=== PATIENT | female | born 1950 | race Hispanic/Latino ===

== ENCOUNTER → 2022-03-31 | Outpatient (CLI) | payer MEDICARE | END | disposition home or self-care (01) | LOC: RAH 12:16 | PROVIDERS: ATTEND Internal Medicine | DX: E04.1 Nontoxic single thyroid nodule (principal) | CPT/HCPCS: 76536 ==

== ENCOUNTER → 2023-09-17 | Outpatient (CLI) | payer MEDICARE | END | disposition home or self-care (01) | LOC: SHCH 14:38 | PROVIDERS: ATTEND Internal Medicine | DX: I70.203 Unspecified atherosclerosis of native arteries of extremities, bilateral legs (principal) | CPT/HCPCS: 93925 ==

== ENCOUNTER → 2023-10-31 | Outpatient (CLI) | payer MEDICARE | END | disposition home or self-care (01) | LOC: SHCH 12:31 | PROVIDERS: ATTEND Internal Medicine | DX: R94.31 Abnormal electrocardiogram [ECG] [EKG] (principal); R06.02 Shortness of breath; Z95.4 Presence of other heart-valve replacement | CPT/HCPCS: 93306 ==

== ENCOUNTER → 2023-12-04 | Outpatient (CLI) | payer MEDICARE | END | disposition home or self-care (01) | LOC: SHCH 14:44 | PROVIDERS: ATTEND Internal Medicine | DX: R94.31 Abnormal electrocardiogram [ECG] [EKG] (principal); R06.02 Shortness of breath; Z95.4 Presence of other heart-valve replacement | CPT/HCPCS: 93308 ==

== ENCOUNTER → 2023-12-18 | Outpatient (CLI) | payer MEDICARE ==
[2023-12-18] MEDS: REGADENOSON 0.4 MG/5 ML PF SYG IVP ONE (10:52)
== END | disposition home or self-care (01) ==
LOC: SHCH 08:09
PROVIDERS: ATTEND Internal Medicine
DX: R94.31 Abnormal electrocardiogram [ECG] [EKG] (principal)
CPT/HCPCS: 78452; 93017; J2785; A9500 ×2